=== PATIENT | male | born 1955 | race Caucasian/White ===

== ENCOUNTER → 2017-08-25 | Day surgery (SDC) | payer BC | LOC: MSO 09:03 | DX: Z12.11 Encounter for screening for malignant neoplasm of colon (principal); I10 Essential (primary) hypertension; K57.30 Diverticulosis of large intestine without perforation or abscess without bleeding; Z87.891 Personal history of nicotine dependence; E07.9 Disorder of thyroid, unspecified; N40.0 Benign prostatic hyperplasia without lower urinary tract symptoms; F41.9 Anxiety disorder, unspecified; E66.9 Obesity, unspecified | CPT/HCPCS: 00812; J2704; J7120 ==

== ENCOUNTER → 2019-12-19 | Outpatient (CLI) | payer MEDICARE ==
[2019-12-18 22:00] VITALS: BP 133/85
[~2019-12-19] MED LIST: FLOMAX0.4 MG PO; LOSARTAN POTAS100 MG PO; PROSCAR PO; SYNTHROID RP0.088 MG PO; SYNTHROID RP0.1 MG PO; WELLBUTRIN XL300 M1 PO
[2019-12-19 15:10] LABS: MEAN PLATELET VOLUME 9.4 fl (7.4-10.4); RED BLOOD COUNT 4.56 M/mm3 (4.20-5.60); WHITE BLOOD COUNT 10.1 K/mm3 (4.8-10.8)
[2019-12-19 15:16] LABS: ALBUMIN 3.8 g/dL (3.4-4.8)
[2019-12-19 15:17] LABS: CALCIUM 8.9 mg/dL (8.3-10.5)
[2019-12-19 15:18] LABS: TOTAL PROTEIN 6.9 g/dL (6.2-8.1)
[2019-12-19 15:20] LABS: TOTAL BILIRUBIN 0.2 mg/dL (0.2-1.2)
== END ==
LOC: LAB 06:20
PROVIDERS: Internal Medicine Infectious Disease
DX: L02.512 Cutaneous abscess of left hand (principal); Z79.2 Long term (current) use of antibiotics

== ENCOUNTER 2019-12-23 13:23 | Outpatient (RCR) | payer MEDICARE ==
[2019-12-13 06:22] VITALS: BP 150/85
[2019-12-13 14:30] VITALS: BP 150/83
[2019-12-13 22:10] VITALS: BP 161/86
[2019-12-14 06:08] VITALS: BP 149/88
[2019-12-14 14:05] VITALS: BP 133/62
[2019-12-14 21:58] VITALS: BP 161/88
[2019-12-15 06:03] VITALS: BP 155/95
[2019-12-15 14:00] VITALS: BP 132/68
[2019-12-15 22:10] VITALS: BP 156/91
[2019-12-16 06:04] VITALS: BP 152/92
[2019-12-16 14:18] VITALS: BP 114/77
[2019-12-16 21:55] VITALS: BP 137/83
[2019-12-17 06:03] VITALS: BP 147/96
[2019-12-17 13:47] VITALS: BP 133/89
[2019-12-17 21:45] VITALS: BP 141/65
[2019-12-18 06:23] VITALS: BP 124/56
[2019-12-18 14:19] VITALS: BP 178/92
[2019-12-18 22:00] VITALS: BP 133/85
[2019-12-19 06:19] VITALS: BP 156/94
[2019-12-19 14:20] VITALS: BP 144/86
[2019-12-19 21:57] VITALS: BP 144/87
[2019-12-20 06:10] VITALS: BP 130/84
[2019-12-20 14:26] VITALS: BP 122/86
[2019-12-20 21:56] VITALS: BP 129/82
[2019-12-21 06:15] VITALS: BP 124/83
[2019-12-21 14:08] VITALS: BP 119/80
[2019-12-21 22:10] VITALS: BP 139/86
[2019-12-21 22:45] VITALS: BP 132/85
[~2019-12-23] VITALS: Ht 172.7 cm; Wt 104.5 kg
[2019-12-23 13:40] VITALS: BP 144/79
== END 2019-12-23 13:47 | disposition home or self-care (01) ==
LOC: AMSURD 13:23
DX: B08.4 Enteroviral vesicular stomatitis with exanthem (principal)
CPT/HCPCS: J0690

== ENCOUNTER 2023-03-03 02:17 | Inpatient (IN) | payer MEDICARE ==
[~2023-03-03] VITALS: Ht 177.8 cm; Wt 90.9 kg
[2023-03-03 03:05] VITALS: BP 173/92
[2023-03-03 05:51] VITALS: BP 170/93
[2023-03-03 07:26] LABS: BASO # 0.02 K/mm3 (0.02-0.10); EOS # 0.01 K/mm3 (0.04-0.40); EOS % 0.1 % (0.0-4.0); HEMATOCRIT 50.5 % (42.0-52.0); HEMOGLOBIN 16.3 g/dL (13.5-18.0); LYMPH# 0.94 K/mm3 (1.50-4.00); MEAN CELL VOLUME 85 fl (78-100); MEAN CORPUSCULAR HEMOGLOBIN 27 pg (27-31); MEAN CORPUSCULAR HGB CONC 32 g/dL (33-37); MEAN PLATELET VOLUME 9.2 fl (7.4-10.4); MONO # 0.68 K/mm3 (0.20-0.80); NEU # 14.65 K/mm3 (1.40-6.50); PLATELET COUNT 307 K/mm3 (130-400); RED BLOOD COUNT 5.94 M/mm3 (4.20-5.60); RED CELL DISTRIBUTION WIDTH 15.5 % (11.5-14.5); WHITE BLOOD COUNT 16.4 K/mm3 (4.8-10.8)
[2023-03-03 07:30] LABS: ALBUMIN 4.4 g/dL (3.4-4.8); POTASSIUM 4.4 mmol/L (3.5-5.1)
[2023-03-03 07:31] LABS: CALCIUM 9.4 mg/dL (8.3-10.5)
[2023-03-03 07:33] LABS: TOTAL PROTEIN 7.1 g/dL (6.2-8.1)
[2023-03-03 07:34] LABS: TOTAL BILIRUBIN 0.5 mg/dL (0.2-1.2)
[2023-03-03 10:19] VITALS: BP 143/85
[2023-03-03] MEDS ORDERED: ONDANSETRON HYDR4 MG PO (14:49)
[2023-03-03] MEDS ORDERED: NORCO 325 MG-51 TA1 PO (14:49)
[2023-03-03] MEDS ORDERED: PRILOSEC 20MG20 MG PO (14:49)
[2023-03-03 14:51] VITALS: BP 116/72
== END 2023-03-03 16:10 | disposition home or self-care (01) | DRG 440 ==
LOC: MED/SURG 02:17
PROVIDERS: ADMIT Nurse Practitioner Family
DX: K85.90 Acute pancreatitis without necrosis or infection, unspecified (principal); D72.829 Elevated white blood cell count, unspecified
CPT/HCPCS: J2270; J7030